=== PATIENT | male | born 1995 | race Caucasian/White ===

== ENCOUNTER 2023-09-14 10:20 | Observation (INO) | payer OTHER, SELFPAY ==
[2023-09-14] VITALS (16 sets, daily range): BP systolic 133–179; BP diastolic 81–100; PULSE 74–124; RESP 13–322; TEMP 36.6–37.1; O2SAT 92–97; BMI 32.2; BMI 32.6
--- NOTE | 2023-09-14 10:28 | EKG12_ITS ---
Test Reason : SOB Blood Pressure : / mmHG Vent. Rate : 102 BPM Atrial Rate : 102 BPM P-R Int : 156 ms QRS Dur : 092 ms QT Int : 346 ms P-R-T Axes : 072 065 035 degrees QTc Int : 450 ms Sinus tachycardia Otherwise normal ECG Confirmed by Surjit Marmolejo ([id number]), scientific publications editor TRANG ESTRADA ([id number]) on 09/15/2023 11:10:02 AM Referred By: Confirmed By:Surjit Marmolejo
--- NOTE | 2023-09-14 10:28 | RAD_ITS ---
STUDY: X-RAY - SOFT TISSUE NECK REASON FOR EXAM: Male, 28 years old. Sore throat TECHNIQUE: AP and lateral view(s) of the neck were obtained. COMPARISON: None. FINDINGS: Normal visualized nasopharynx, oropharynx, hypopharynx. Normal epiglottis. Normal visualized subglottic tracheal air column. Loss of the normal cervical lordosis. Normal visualized osseous structures. Diffuse subcutaneous emphysema overlying both cervical regions and the upper thorax. RAD/Neck for Soft Tissue IMPRESSION: Diffuse subcutaneous emphysema overlying both cervical region and the upper thorax. Electronically Signed: Clarke Washington MD at 11:32 EDT ,
--- NOTE | 2023-09-14 10:32 | ED.RN ---
NO OLD EKGS
--- NOTE | 2023-09-14 10:34 | ED.VIS.DYS ---
HPI History of Present Illness Chief Complaint: Shortness of Breath Narrative Narrative: 28-year-old male presenting with shortness of breath. He states he history of asthma and was seen at [facility] yesterday. He states they gave him a breathing treatment and establish an IV and gave him some steroids but told him that he did not need imaging and did not need lab work. Patient states he is having more trouble breathing he feels like his throat is swelling and it is more of a swallowing issue in his throat. He states the breathing treatments helped yesterday because he does have asthma and he was not sent home on steroids but he did not think the steroids made any difference. He states that the pain in his throat extends all the way down his chest and it feels like he has grace in his throat. He feels like he might taste blood. He has not been coughing up blood. He has not had a fever. [facility] Medical History (Updated 09/14/23 @ 13:[address] Andreina Salgado MD) Asthma Home Medications ?Medication ?Instructions ?Recorded ?Last Taken ?Type NK 09/14/23 Unknown History Allergy/AdvReac Type Severity Reaction Status Date / Time No Known Allergies Allergy Verified 09/14/23 10:21 Social History Smoking Status: Never smoker ROS ROS ED Constitutional Constitutional ED: Denies chills or fever(s) Eyes Eyes: Denies change in vision or diplopia ENT ENT ED: Reports sore throat; Denies rhinorrhea Cardiovascular Cardiovascular: Denies chest pain Respiratory/Chest Respiratory/Chest: Reports dyspnea and dyspnea on exertion Gastrointestinal Gastrointestinal: Denies abdominal pain, nausea or vomiting Genitourinary Genitourinary ED: Denies dysuria or hematuria Musculoskeletal Musculoskeletal: Denies arthralgias, back pain or myalgias Integumentary Denies abscess or Abrasions Neurologic Neurologic: Denies headache(s) Psychiatric Psychiatric: Denies anxiety or depression EXAM Physical Exam Const Vital Signs: 09/14/23 10:20 09/14/23 10:38 09/14/23 10:39 Temperature 97.8 F Temperature Source Temporal Pulse Rate 124 H Respiratory Rate 24 H Respiratory Effort Normal Respiratory Depth Normal Respiratory Pattern Normal Blood Pressure 152/99 H Blood Pressure Mean 116 Pulse Ox 92 Oxygen Delivery Method Room Air Room Air 09/14/23 10:45 09/14/23 10:45 09/14/23 11:32 Temperature Temperature Source Pulse Rate 115 H 112 H Respiratory Rate 13 24 H Respiratory Effort Respiratory Depth Respiratory Pattern Normal Blood Pressure Blood Pressure Mean Pulse Ox 97 94 Oxygen Delivery Method Room Air 09/14/23 12:00 09/14/23 13:00 Temperature Temperature Source Pulse Rate 113 H 101 H Respiratory Rate 22 H 21 H Respiratory Effort Respiratory Depth Respiratory Pattern Blood Pressure Blood Pressure Mean Pulse Ox 92 92 Oxygen Delivery Method Positive well nourished General Appearance ED: NAD HEENT Reports moist mucous membranes HEENT Narrative: Patient tolerating his own secretions. He is speaking in full sentences. atraumatic Eyes PERRL and EOMs intact bilaterally Neck no lymphadenopathy and supple Neck Narrative: No stridor on examination General: normal visual inspection and trachea midline; Negative for anterior neck swelling or tracheal deviation Resp normal respiratory effort Auscultation: Negative for rales, rhonchi or wheezes Cardio regular rhythm Rate: tachycardic MDM MDM MDM Narrative Medical decision making narrative: Patient presenting with feeling of difficulty swallowing and shortness of breath. He is not wheezing on exam but he did state that these aerosols helped him yesterday. Differential includes ACS, PE, pneumonia, pneumothorax, strep throat, COVID, influenza, RSV. CBC will be obtained to assess white blood cell count, hemoglobin, platelets. BMP to assess renal function, electrolytes, glucose. High-sensitivity troponin and EKG to assess for ischemia/dysrhythmia. Chest x-ray to rule out pneumonia pneumothorax. CBC shows leukocytosis 20.5. Patient did receive some steroids yesterday is not clear if this was elevating his white blood cell count. Renal function electrolytes are normal. High-sensitivity troponin is 17. EKG interpreted by myself shows sinus rhythm at 102 bpm without sign of ischemic change. Chest x-ray and soft tissue neck interpreted by myself show a lot of subcu emphysema. Radiology interprets the chest x-ray as a 5% pneumothorax. Discussed the case with general surgery Dr. Salgado. She recommended a CT of the chest which was performed and shows a lot of subcutaneous emphysema, trace pneumothoraces, pneumomediastinum. Patient was placed on oxygen. Dr. Gray him is going to order a upper GI series. Patient to be admitted to the hospital. Impression: 1. Pneumothorax 2. Pneumomediastinum 3. Subcutaneous emphysema 4. Leukocytosis Lab Data Attestation: I reviewed the patient's lab results. Labs: Laboratory Results - last 24 hr 09/14/23 10:48 WBC 20.5 H RBC 5.49 Hgb 16.2 Hct 48.5 MCV 88.3 MCH 29.5 MCHC 33.4 RDW Std Deviation 42.2 RDW Coeff of Lorraine 12.9 Plt Count 182 MPV 12.6 H Immature Gran % (Auto) 0.400 Neut % (Auto) 81.8 H Lymph % (Auto) 8.6 L Owen % (Auto) 8.7 Eos % (Auto) 0.3 Baso % (Auto) 0.2 Absolute Neuts (auto) 16.8 H Absolute Lymphs (auto) 1.77 Nucleated RBC % 0 Diff Path Review May foll D-Dimer Quant (PE/DVT) 0.32 Sodium 137 Potassium 3.6 Chloride 105 Carbon Dioxide 28.0 Anion Gap 4 L BUN 18 Creatinine 1.06 Estim Creat Clear Calc 139.26 Est GFR (MDRD) Af Amer 107 Est GFR (MDRD) Non-Af 88 BUN/Creatinine Ratio 17.0 Glucose 105 Calcium 10.2 H Troponin I High Sens 17 Radiography Diagnostic Testing: Clinical Impression(s) from Imaging Studies Soft Tissue Neck X-Ray 09/14/23 10:28 IMPRESSION: Diffuse subcutaneous emphysema overlying both cervical region and the upper thorax. Electronically Signed: Clarke Washington MD at 11:32 EDT , Chest X-Ray 09/14/23 11:06 IMPRESSION: There is a 5% right apical pneumothorax. Pneumomediastinum. Subcutaneous emphysema overlying the upper chest and lower cervical region. Electronically Signed: Clarke Washington MD at 11:31 EDT , Chest CT 09/14/23 12:05 IMPRESSION: Moderate cervical emphysema and pneumomediastinum with air extending into the upper chest wall. Trace pneumothoraces. Electronically Signed: Liyah Dee MD at 12:43 EDT , Soft Tissue Neck CT 09/14/23 12:05 IMPRESSION: Extensive cervical emphysema, particularly in the retropharyngeal region with extension of air into the upper chest as above. Electronically Signed: Liyah Dee MD at 12:54 EDT , Discharge Plan Triage Chief Complaint: Shortness of Breath ED Provider: David Elaine Dx/Rx/DC Orders Prescriptions: No Action NK Primary Care Provider: Care Physician,No Primary Referrals: Care Physician,No Primary [Primary Care Provider] - Print Language: Greenlandic
[2023-09-14] MEDS: 0.9% Normal Saline (1000mL) 1,000 ML 999 ML IV (10:40)
[2023-09-14] MEDS: Albuterol 2.5 MG/3 ML VIAL.NEB. INHALATION (10:40)
[2023-09-14] MEDS: Ipratropium/Albuterol Sulfate 3 ML AMPUL.NEB INHALATION (10:40)
[2023-09-14] MEDS: MethylPREDNISolone 125 MG/2 ML Vial IV (10:40)
[2023-09-14 10:56] LABS: Absolute Lymphocyte Count 1.77 X10^3/uL (0.83-4.51); Absolute Neutrophil Count 16.8 X10^3/uL (2.0-7.7); Basophil# 0.04 X10^3/uL; Basophil% 0.2 % (0-1); Eosinophil# 0.07 X10^3/uL; Eosinophils% 0.3 % (0-5); Hematocrit 48.5 % (40-54); Hemoglobin 16.2 g/dL (13.0-16.5); Lymphocyte # 1.77 X10^3/ul (0.83-4.51); Lymphocyte % 8.6 % (19-41); Mean Corp Hgb Conc 33.4 g/dL (32-36); Mean Corpuscular Hgb 29.5 pg (27.0-32.0); Mean Corpuscular Volume 88.3 fL (80-94); Mean Platelet Vol. 12.6 fl (6.2-12.0); Monocyte# 1.79 X10^3/uL; Monocyte% 8.7 % (0-10); NRBC Flagged by Analyzer 0 % (0-5); Neutrophil # 16.76 X10^3/uL (2.7-7.7); Neutrophil % 81.8 % (47-70); POSITIVE DIFFERENTIAL YES; Platelet Count 182 K/mm3 (150-450); RBC Distribution Width CV 12.9 % (11.6-14.6); RBC Distribution Width SD 42.2 fl (35.1-43.9); Red Blood Count 5.49 M/mm3 (4.6-6.2); White Blood Count 20.5 K/mm3 (4.4-11.0)
[2023-09-14 11:03] LABS: Differential Indicated SCAN CRITERIA MET
--- NOTE | 2023-09-14 11:06 | RAD_ITS ---
STUDY: X-RAY CHEST REASON FOR EXAM: Male, 28 years old. Chest pain and cervical pain. TECHNIQUE: Single AP portable view of the chest. COMPARISON: None. FINDINGS: EKG electrodes are seen. Subcutaneous emphysema is seen in the upper thorax and lower cervical region. There is evidence of a 5% right apical pneumothorax. There is no demonstrated pleural abnormality. Normal size heart. I suspect a pneumomediastinum as well. Normal visualized pulmonary arteries. Normal visualized aortic arch and descending thoracic aorta. Normal visualized thoracic spine. Normal visualized ribs, clavicles, and shoulders. There is no demonstrated abnormality of the visualized soft tissue structures of the upper abdomen. RAD/Chest 1 View (Portable) IMPRESSION: There is a 5% right apical pneumothorax. Pneumomediastinum. Subcutaneous emphysema overlying the upper chest and lower cervical region. Electronically Signed: Clarke Washington MD at 11:31 EDT ,
[2023-09-14 11:12] LABS: D-Dimer Quantitative (DVT/PE) 0.32 FEU/ug/m (0.27-0.49)
[2023-09-14 11:23] LABS: Anion Gap 4 (5-15); BUN 18 mg/dL (7-18); Calcium,Total 10.2 mg/dL (8.5-10.1); Chloride 105 mmol/L (98-107); Creatinine, Serum 1.06 mg/dL (0.70-1.30); EST Glomerular Filtration Rate 88 mL/min (>60); Est Glom Filt Rate - Afr Amer 107 mL/min (>60); Estimated Creatinine Clearance 139.26 ml/min; Glucose 105 mg/dL (74-106); Potassium 3.6 mmol/L (3.5-5.1); Sodium Level 137 mmol/L (136-145); Troponin-I HS 17 pg/mL (3.0-78.0)
--- NOTE | 2023-09-14 12:05 | CT_ITS ---
HISTORY: pneumothorax. TECHNIQUE: CT of the chest was performed after the intravenous administration of 100 mL Isovue 300. Coronal and sagittal reformatted images. Individualized dose optimization techniques were used for this CT. 900 images. COMPARISON: CR same day. FINDINGS: CENTRAL AIRWAYS: Patent. LUNGS: Clear. PLEURA: Trace bilateral pneumothoraces. No significant pleural effusion. HEART/PERICARDIUM: Heart within normal limits in size. No pericardial effusion. AORTA/VESSELS: No thoracic aortic aneurysm or dissection flap. MEDIASTINUM/VANESSA: Moderate bilateral lower cervical emphysema extending to the supraclavicular region, paraspinal soft tissues, and upper thoracic spine. Moderate pneumomediastinum. No significant wall thickening or surrounding stranding of the trachea or esophagus. No pathologically enlarged lymph nodes. Mild air in the deep soft tissues of the upper chest wall bilaterally. OSSEOUS STRUCTURES: Intact. UPPER ABDOMEN: Unremarkable. CT/Chest WITH Contrast IMPRESSION: Moderate cervical emphysema and pneumomediastinum with air extending into the upper chest wall. Trace pneumothoraces. Electronically Signed: Liyah Dee MD at 12:43 EDT ,
--- NOTE | 2023-09-14 12:05 | CT_ITS ---
HISTORY: pneumotharax. TECHNIQUE: Helically acquired images were obtained of the neck after the intravenous administration of 100 mL Isovue 300. A radiation dose optimization technique was used for this scan. 633 images. COMPARISON: CR same day. FINDINGS: NASOPHARYNX: Symmetric soft tissues with cervical emphysema. SUPRAHYOID NECK: Retropharyngeal air extending up to the nasopharynx into the superior mediastinum measuring 1.2 cm in thickness at the C3 level. Air extends into the bilateral parapharyngeal and left submandibular spaces. Symmetric oropharynx. No significant emphysema of the oral cavity. INFRAHYOID NECK: Air dissects around the sternocleidomastoid and strap muscles with extension to the supraclavicular regions. Unremarkable larynx, hypopharynx, and supraglottis. THYROID: No focal lesions. SALIVARY GLANDS: Unremarkable. LYMPH NODES: Mildly prominent bilateral cervical lymph nodes, likely reactive. VASCULAR STRUCTURES: Unremarkable limited contrast bolus noted ORBITS: Symmetric contents. No oral emphysema. PARANASAL SINUSES, MASTOID AIR CELLS: Mild bubbly fluid in the right maxillary sinus. OSSEOUS STRUCTURES: Intact cervical spine. Air extends into the cervical and upper thoracic spine as well as the paraspinal soft tissues LUNG APICES: Trace apical pneumothoraces with air in the soft tissues of the upper chest wall. CT/Soft Tissue Neck WITH Contrast IMPRESSION: Extensive cervical emphysema, particularly in the retropharyngeal region with extension of air into the upper chest as above. Electronically Signed: Liyah Dee MD at 12:54 EDT ,
--- NOTE | 2023-09-14 13:07 | PCM.HP.STD ---
HPI - General General Date of Admission: 09/14/23 Chief Complaint: Tightness at neck and chest HPI Narrative LYNNETTE SKINNER, is a 28 M who presents to the ER due to feeling tightness in his neck and chest. Patient states this started on Tuesday and was the worst on Tuesday and went to [facility] and they did not do any labs or imaging just given IV steroids and sent him home per patient. Patient came in the ER today with the same symptoms but does state they are a little bit better. Patient states it can hurt to swallow as well. Patient does have a history of asthma not currently on any inhalers recently. Patient states when this started on Tuesday he was smoking with some of his friends does not recall any heavy coughing just normal coughing. Patient did notice that he had some wheezing. Patient only took Tylenol as I stated before he does not have any current inhaler. Patient states he smokes about twice a day. States he did have some heavy coughing about 2 weeks ago when he had an upper respiratory infection per patient. Patient's white blood count on admit is 20.5 he did get IV steroids yesterday and also some additional IV steroids in the ER today. Chest x-ray and x-ray of the neck showed subcutaneous cervical emphysema as well as very small pneumothorax. CT neck and chest also showed the same. Patient is satting 92% on room air. [facility] Medical History (Updated 09/14/23 @ 13:[address] Andreina Salgado MD) Asthma Home Medications ?Medication ?Instructions ?Recorded ?Last Taken ?Type NK 09/14/23 Unknown History Allergy/AdvReac Type Severity Reaction Status Date / Time No Known Allergies Allergy Verified 09/14/23 10:21 Social History (Updated 09/14/23 @ 13:[address] Andreina Salgado MD) Smoking Status: Current every day smoker Vital Signs Vital Signs Vital Signs: 09/14/23 10:20 09/14/23 10:38 09/14/23 10:39 Temperature 97.8 F Temperature Source Temporal Pulse Rate 124 H Respiratory Rate 24 H Respiratory Effort Normal Respiratory Depth Normal Respiratory Pattern Normal Blood Pressure 152/99 H Blood Pressure Mean 116 Pulse Ox 92 Oxygen Delivery Method Room Air Room Air 09/14/23 10:45 09/14/23 10:45 09/14/23 11:32 Temperature Temperature Source Pulse Rate 115 H 112 H Respiratory Rate 13 24 H Respiratory Effort Respiratory Depth Respiratory Pattern Normal Blood Pressure Blood Pressure Mean Pulse Ox 97 94 Oxygen Delivery Method Room Air 09/14/23 12:00 Temperature Temperature Source Pulse Rate 113 H Respiratory Rate 22 H Respiratory Effort Respiratory Depth Respiratory Pattern Blood Pressure Blood Pressure Mean Pulse Ox 92 Oxygen Delivery Method Weight Weight: 251 lb 3.2 oz Body Mass Index (BMI) 32.2 Physical Exam Narrative Patient does have some slight subcu crepitus in his neck which is not super easy to feel and mild Const alert, oriented x3 and no apparent distress HEENT normocephalic and head/scalp atraumatic Resp normal respiratory effort Auscultation: wheezes expiratory wheezes (Bases bilaterally little more on the right than left) Cardio regular rate GI soft to palpation and non-tender; Negative for non-distended Palpation: Negative for guarding Extremity no clubbing, cyanosis or edema Skin no rashes or lesions noted Neuro CN's II-XII intact bilaterally Psych mental status grossly normal Results Lab / Micro Data 09/14/23 10:48 09/14/23 10:48 Labs: Laboratory Results - last 24 hr 09/14/23 10:48: WBC 20.5 H, RBC 5.49, Hgb 16.2, Hct 48.5, MCV 88.3, MCH 29.5, MCHC 33.4, RDW Std Deviation 42.2, RDW Coeff of Lorraine 12.9, Plt Count 182, MPV 12.6 H, Immature Gran % (Auto) 0.400, Neut % (Auto) 81.8 H, Lymph % (Auto) 8.6 L, Patrick % (Auto) 8.7, Eos % (Auto) 0.3, Baso % (Auto) 0.2, Absolute Neuts (auto) 16.8 H, Absolute Lymphs (auto) 1.77, Nucleated RBC % 0, Diff Path Review July foll, D-Dimer Quant (PE/DVT) 0.32, Sodium 137, Potassium 3.6, Chloride 105, Carbon Dioxide 28.0, Anion Gap 4 L, BUN 18, Creatinine 1.06, Estim Creat Clear Calc 139.26, Est GFR (MDRD) Af Amer 107, Est GFR (MDRD) Non-Af 88, BUN/Creatinine Ratio 17.0, Glucose 105, Calcium 10.2 H, Troponin I High Sens 17 Micro: Microbiology 09/14/23 11:00 Mucosa - Throat Streptococcus pyogenes (PCR) - Final 09/14/23 11:10 Mucosa - Nose SARS-CoV-2, Influenza & RSV (PCR) - Final Imaging Radiology Impression Soft Tissue Neck X-Ray 09/14/23 10:28 IMPRESSION: Diffuse subcutaneous emphysema overlying both cervical region and the upper thorax. Electronically Signed: Clarke Washington MD at 11:32 EDT , Chest X-Ray 09/14/23 11:06 IMPRESSION: There is a 5% right apical pneumothorax. Pneumomediastinum. Subcutaneous emphysema overlying the upper chest and lower cervical region. Electronically Signed: Clarke Washington MD at 11:31 EDT , Chest CT 09/14/23 12:05 IMPRESSION: Moderate cervical emphysema and pneumomediastinum with air extending into the upper chest wall. Trace pneumothoraces. Electronically Signed: Liyah Dee MD at 12:43 EDT , Soft Tissue Neck CT 09/14/23 12:05 IMPRESSION: Extensive cervical emphysema, particularly in the retropharyngeal region with extension of air into the upper chest as above. Electronically Signed: Liyah Dee MD at 12:54 EDT , Assessment & Plan Assessment/Plan (1) Pneumomediastinum: (2) Nontraumatic subcutaneous emphysema: (3) Tobacco abuse: PLAN: Plan Discussed with patient would plan to get an upper GI with Gastrografin today to rule out any esophageal perforation as if that were the case patient would need to be transferred to tertiary care facility. Once the upper GI is completed we will allow patient to have liquids. Will plan to keep patient on 2 L nasal cannula and repeat chest x-ray and neck x-ray in a.m. discussed with patient as long as it is not worse and he is able to tolerate diet would likely be able to be DC home tomorrow. Leukocytosis due to IV steroids-yesterday at [facility] and today. Will consult hospitalist for help with asthma medications patient does not currently have any inhalers Andreina Salgado M.D. Pager: [phone] [facility] [address] [place] [address], [facility], [address] [place] [address] Office: [phone]
--- NOTE | 2023-09-14 13:40 | RAD_ITS ---
CLINICAL HISTORY: Male, 28 years old. Cervical emphysema. PROCEDURE: Gastrografin upper GI series. FLUOROSCOPY TIME (if supplied): (18 seconds) minutes/seconds. 30.80 mGy. 18 images were submitted. TECHNIQUE: (All elements of maximal sterile barrier technique followed, including US elements as applicable) The patient ingested Gastrografin. Imaging was obtained. FINDINGS: No evidence of esophageal tear. No evidence of obstruction. The stomach is unremarkable. RAD/Upper GI Single Contrast IMPRESSION: Unremarkable examination. Electronically Signed: Clarke Washington MD at 13:57 EDT ,
--- NOTE | 2023-09-14 16:20 | CON.PCM.HO_ITS ---
Assessment & Plan Assessment/Plan (1) Nontraumatic subcutaneous emphysema: (2) Pneumomediastinum: PLAN: Plan Pneumomediastinum and subcutaneous emphysema in the chest and neck. * Suspect that the coughing patient had likely precipitated that. Plan is to monitor the patient overnight. * Patient did have an upper GI that was negative thereby ruling out any esophageal perforation. * Supportive management at this time. * I did review this with Dr. Mendoza, pulmonary, who who felt as if the patient remained stable that there would not be any additional workup necessary at this time. Asthma * Patient does not appear to be any con asthma exacerbation and patient states it has been remote since he has had a prior severe exacerbation of his asthma. His symptoms may have not been directly related with asthma but possibly related with an upper respiratory infection. * No additional workup or treatment indicated at this time. Thank you for the consult. The hospitalist service will follow peripherally. HPI Consult Data Date of Consult: 09/14/23 HPI Narrative Reason for Consultation: Consult requested by Dr. Salgado for asthma. HPI Narrative: LYNNETTE SKINNER, is a 28 M who presents with difficulty swallowing and neck fullness. Over the past couple days, patient has been feeling short of breath and been having a dry cough. Symptoms again more acute today where he had the aforementioned symptoms. Patient had a CT of his chest that showed moderate cervical emphysema and pneumomediastinum with air extending into the upper chest wall. Trace pneumothoraces. And CT of his neck showed extensive cervical emphysema particularly in the retropharyngeal region with extension of air into the upper chest as above. Patient was admitted to medical surgical floor. Patient did undergo an upper GI that was negative. Patient denies any vomiting. [facility] Medical History Asthma Home Medications ?Medication ?Instructions ?Recorded ?Last Taken ?Type NK 09/14/23 Unknown History Allergy/AdvReac Type Severity Reaction Status Date / Time No Known Allergies Allergy Verified 09/14/23 10:21 Family History (Updated 09/14/23 @ 16:[address] Sagar Arredondo DO) Other COPD (chronic obstructive pulmonary disease) Social History (Updated 09/14/23 @ 16:[address] Sagar Arredondo DO) Smoking Status: Former smoker substance use type: marijuana ROS ROS Narrative All review of systems were negative except as mentioned above in the history of present illness and the other review of systems. Physical Exam Const alert and no apparent distress Constitutional Narrative: No respiratory distress. No conversational dyspnea. Voice is weak but clear. HEENT normocephalic and hearing grossly normal bilaterally Neck Neck Narrative: Fullness of his neck without any crepitance though there was some crepitance in the upper chest Resp normal respiratory effort and no retractions Cardio regular rate, regular rhythm, S1 normal heart sound and S2 normal heart sound GI normal to inspection, nondistended, normoactive bowel sounds, soft to palpation, non-tender and non-distended Extremity normal to inspection and no clubbing, cyanosis or edema Neuro Sensorium / Orientation: awake and alert Lab / Micro Data 09/14/23 10:48 09/14/23 10:48 Labs: Laboratory Results - last 24 hr 09/14/23 10:48: WBC 20.5 H, RBC 5.49, Hgb 16.2, Hct 48.5, MCV 88.3, MCH 29.5, MCHC 33.4, RDW Std Deviation 42.2, RDW Coeff of Lorraine 12.9, Plt Count 182, MPV 12.6 H, Immature Gran % (Auto) 0.400, Neut % (Auto) 81.8 H, Lymph % (Auto) 8.6 L , [place] % (Auto) 8.7, Eos % (Auto) 0.3, Baso % (Auto) 0.2, Absolute Neuts (auto) 16.8 H, Absolute Lymphs (auto) 1.77, Nucleated RBC % 0, Diff Path Review July foll, D-Dimer Quant (PE/DVT) 0.32, Sodium 137, Potassium 3.6, Chloride 105, Carbon Dioxide 28.0, Anion Gap 4 L, BUN 18, Creatinine 1.06, Estim Creat Clear Calc 139.26, Est GFR (MDRD) Af Amer 107, Est GFR (MDRD) Non-Af 88, BUN/Creatinine Ratio 17.0, Glucose 105, Calcium 10.2 H, Troponin I High Sens 17 Micro: Microbiology 09/14/23 11:00 Mucosa - Throat Streptococcus pyogenes (PCR) - Final 09/14/23 11:10 Mucosa - Nose SARS-CoV-2, Influenza & RSV (PCR) - Final Imaging Radiology Impression Soft Tissue Neck X-Ray 09/14/23 10:28 IMPRESSION: Diffuse subcutaneous emphysema overlying both cervical region and the upper thorax. Electronically Signed: Clarke Washington MD at 11:32 EDT , Chest X-Ray 09/14/23 11:06 IMPRESSION: There is a 5% right apical pneumothorax. Pneumomediastinum. Subcutaneous emphysema overlying the upper chest and lower cervical region. Electronically Signed: Clarke Washington MD at 11:31 EDT , Chest CT 09/14/23 12:05 IMPRESSION: Moderate cervical emphysema and pneumomediastinum with air extending into the upper chest wall. Trace pneumothoraces. Electronically Signed: Liyah Dee MD at 12:43 EDT , Soft Tissue Neck CT 09/14/23 12:05 IMPRESSION: Extensive cervical emphysema, particularly in the retropharyngeal region with extension of air into the upper chest as above. Electronically Signed: Liyah Dee MD at 12:54 EDT , Upper GI Series 09/14/23 13:40 IMPRESSION: Unremarkable examination. Electronically Signed: Clarke Washington MD at 13:57 EDT , Charges/Coding Visit Charges Office Visits / Consults: [id number] OP Consult L3
[2023-09-14] MEDS: 0.9% Normal Saline (1000mL) 1,000 ML 120 ML IV (20:00)
[2023-09-14] MEDS: Acetaminophen 325 MG Tablet 650 MG PO (20:00)
--- NOTE | 2023-09-14 23:25 | NURSING ---
HOB up 45, pt sleeping, breathing appears unlabored
[2023-09-15] MEDS: 0.9% Normal Saline (1000mL) 1,000 ML 120 ML IV ×2 (00:13→08:33)
--- NOTE | 2023-09-15 05:55 | RAD_ITS ---
INDICATION: Cervical subcu emphysema -- Include neck-portable EXAMINATION/TECHNIQUE: X-RAY - XR Chest 1 View COMPARISON: 09/14/2023. FINDINGS: LINES/DEVICES: None. LUNGS: Questionable small right apical pneumothorax. No evidence of a pleural effusion. No focal infiltrate is identified. MEDIASTINUM AND CARDIOVASCULAR STRUCTURES: Cardiac silhouette is normal in size and contour. Stable mild pneumomediastinum. BONES AND SOFT TISSUES: Stable subcutaneous emphysema in the neck, left greater than right. RAD/Chest 1 View (Portable) IMPRESSION: Stable subcutaneous emphysema in the neck and stable mild pneumomediastinum. Questionable small right apical pneumothorax. Electronically Signed: Shay Fernando DO at 6:16 EDT ,
[2023-09-15 06:14] VITALS: BP 152/80; PULSE 96; RESP 20; TEMP 36.9; O2SAT 96
--- NOTE | 2023-09-15 07:13 | PCM.PN.SRG ---
Subjective Subjective Patient states he did have a bit of coughing around 3 AM and then noticed some wheezing after that. Patient currently getting a breathing treatment Objective Data Objective Data Vital Signs: Vital Signs Temp Pulse Resp BP Pulse Ox O2 Del Method O2 Flow Rate 98.4 F 96 20 H 152/80 H 96 Nasal Cannula 2 09/15/23 06:14 09/15/23 06:14 09/15/23 06:14 09/15/23 06:14 09/15/23 06:14 09/15/23 06:14 09/15/23 06:14 Oxygen Flow Rate (L/min) 2 Oxygen Delivery Method Nasal Cannula Weight: 254 lb 8 oz Body Mass Index (BMI) 32.6 Intake & Output: Intake and Output for Last 24 Hours 09/13/23 09/14/23 09/15/23 23:59 23:59 23:59 Intake Total 1000 / 2166 1672 / 1672 Output Total 0 / 0 Balance 1000 / 2166 1672 / 1672 Lab / Micro Data 09/15/23 06:12 09/15/23 06:12 Labs: Laboratory Results - last 24 hr 09/14/23 10:48: WBC 20.5 H, RBC 5.49, Hgb 16.2, Hct 48.5, MCV 88.3, MCH 29.5, MCHC 33.4, RDW Std Deviation 42.2, RDW Coeff of [place]raine 12.9, Plt Count 182, MPV 12.6 H, Immature Gran % (Auto) 0.400, Neut % (Auto) 81.8 H, Lymph % (Auto) 8.6 L, [place] % (Auto) 8.7, Eos % (Auto) 0.3, Baso % (Auto) 0.2, Absolute Neuts (auto) 16.8 H, Absolute Lymphs (auto) 1.77, Nucleated RBC % 0, Diff Path Review July foll, D-Dimer Quant (PE/DVT) 0.32, Sodium 137, Potassium 3.6, Chloride 105, Carbon Dioxide 28.0, Anion Gap 4 L, BUN 18, Creatinine 1.06, Estim Creat Clear Calc 139.26, Est GFR (MDRD) Af Amer 107, Est GFR (MDRD) Non-Af 88, BUN/Creatinine Ratio 17.0, Glucose 105, Calcium 10.2 H, Troponin I High Sens 17 Micro: Microbiology 09/14/23 11:00 Mucosa - Throat Streptococcus pyogenes (PCR) - Final 09/14/23 11:10 Mucosa - Nose SARS-CoV-2, Influenza & RSV (PCR) - Final Radiography Diagnostic Testing: Radiology Impression Soft Tissue Neck X-Ray 09/14/23 10:28 IMPRESSION: Diffuse subcutaneous emphysema overlying both cervical region and the upper thorax. Electronically Signed: Clarke Washington MD at 11:32 EDT , Chest X-Ray 09/14/23 11:06 IMPRESSION: There is a 5% right apical pneumothorax. Pneumomediastinum. Subcutaneous emphysema overlying the upper chest and lower cervical region. Electronically Signed: Clarke Washington MD at 11:31 EDT , Chest CT 09/14/23 12:05 IMPRESSION: Moderate cervical emphysema and pneumomediastinum with air extending into the upper chest wall. Trace pneumothoraces. Electronically Signed: Liyah Dee MD at 12:43 EDT , Soft Tissue Neck CT 09/14/23 12:05 IMPRESSION: Extensive cervical emphysema, particularly in the retropharyngeal region with extension of air into the upper chest as above. Electronically Signed: Liyah Dee MD at 12:54 EDT , Upper GI Series 09/14/23 13:40 IMPRESSION: Unremarkable examination. Electronically Signed: Clarke Washington MD at 13:57 EDT , Chest X-Ray 09/15/23 05:55 IMPRESSION: Stable subcutaneous emphysema in the neck and stable mild pneumomediastinum. Questionable small right apical pneumothorax. Electronically Signed: Shay Fernando, DO at 6:16 EDT , Physical Exam Narrative Patient does have subcu crepitus a little more noticeable in the neck more so on the left however patient's x-ray read as stable. Const oriented x3 and no apparent distress Resp normal respiratory effort Cardio regular rate GI soft to palpation and non-tender Inspection: Negative for abdominal distention Assessment & Plan Assessment/Plan (1) Pneumomediastinum: (2) Nontraumatic subcutaneous emphysema: PLAN: Plan Patient's x-ray appears stable may be slightly more noticeable subcu crepitus on exam. Patient is 96% on 2 L nasal cannula?prophylactically. Patient did tolerate full liquids will advance to regular diet check later today and and possibly discharge home. Addendum: Recheck about 1500 patient denies any issues breathing 96% on room air tolerating regular diet. Will recheck chest x-ray including neck at 5 PM if stable will DC home. Will have patient have a repeat x-ray on Tuesday and discussed with patient that if anything worsens over the weekend recommend going to the ER. Patient was agreeable with plan. Did also encourage marijuana cessation. Leukocytosis improved to 16 from 20 but likely due to IV steroids that he got 2 days in a row. Appreciate medicine's input Andreina Salgado M.D. Pager: [phone] [facility] [address] [place] [address], [facility], [address] [place] [address] Office: [phone] Charges/Coding Visit Charges Inpatient E&M: 07186 Subs Hosp L2
[2023-09-15 07:18] LABS: Absolute Neutrophil Count 13.5 X10^3/uL (2.0-7.7); Basophil# 0.04 X10^3/uL; Basophil% 0.2 % (0-1); Eosinophil# 0.11 X10^3/uL; Eosinophils% 0.7 % (0-5); Hematocrit 44.4 % (40-54); Hemoglobin 14.1 g/dL (13.0-16.5); Lymphocyte % 10.2 % (19-41); Mean Corp Hgb Conc 31.8 g/dL (32-36); Mean Corpuscular Hgb 28.6 pg (27.0-32.0); Mean Corpuscular Volume 90.1 fL (80-94); Mean Platelet Vol. 12.7 fl (6.2-12.0); Monocyte# 1.27 X10^3/uL; Monocyte% 7.6 % (0-10); NRBC Flagged by Analyzer 0 % (0-5); Neutrophil # 13.48 X10^3/uL (2.7-7.7); Neutrophil % 80.8 % (47-70); Platelet Count 166 K/mm3 (150-450); RBC Distribution Width CV 13.2 % (11.6-14.6); RBC Distribution Width SD 43.6 fl (35.1-43.9); Red Blood Count 4.93 M/mm3 (4.6-6.2); White Blood Count 16.7 K/mm3 (4.4-11.0)
[2023-09-15] MEDS: Ipratropium/Albuterol Sulfate 3 ML AMPUL.NEB INHALATION ×2 (07:23→13:08)
[2023-09-15 07:26] VITALS: PULSE 99; RESP 18; O2SAT 97
[2023-09-15 07:55] LABS: Anion Gap 5 (5-15); BUN 19 mg/dL (7-18); BUN/Creat Ratio 24.9 RATIO (10-20); Calcium,Total 9.1 mg/dL (8.5-10.1); Chloride 108 mmol/L (98-107); Creatinine, Serum 0.76 mg/dL (0.70-1.30); EST Glomerular Filtration Rate 129 mL/min (>60); Est Glom Filt Rate - Afr Amer 156 mL/min (>60); Estimated Creatinine Clearance 195.46 ml/min; Glucose 90 mg/dL (74-106); Potassium 3.4 mmol/L (3.5-5.1); Sodium Level 142 mmol/L (136-145)
[2023-09-15 08:18] VITALS: BP 159/101; PULSE 96; RESP 16; TEMP 36.6; O2SAT 93
--- NOTE | 2023-09-15 08:28 | PN.HOSP_ITS ---
Reason for Visit Reason for Visit: Diagnoses Interstitial emphysema (09/14/23) Tobacco use (09/14/23) Subjective Subjective Feels well. Still with dry cough. Fullness in neck. Objective Data Objective Data Vital Signs: Vital Signs Temp Pulse Resp BP Pulse Ox O2 Del Method O2 Flow Rate 36.6 C 96 16 159/101 H 93 Nasal Cannula 2 09/15/23 08:18 09/15/23 08:18 09/15/23 08:18 09/15/23 08:18 09/15/23 08:18 09/15/23 08:23 09/15/23 08:23 Oxygen Flow Rate (L/min) 2 Oxygen Delivery Method Nasal Cannula Weight: 115.439 kg Body Mass Index (BMI) 32.6 Intake & Output: Intake and Output for Last 24 Hours 09/13/23 09/14/23 09/15/23 23:59 23:59 23:59 Intake Total 1000 / 2166 1672 / 1672 Output Total 0 / 0 Balance 1000 / 2166 1672 / 1672 Lab / Micro Data 09/15/23 06:12 09/15/23 06:12 Labs: Laboratory Results - last 24 hr 09/14/23 10:48: WBC 20.5 H, RBC 5.49, Hgb 16.2, Hct 48.5, MCV 88.3, MCH 29.5, MCHC 33.4, RDW Std Deviation 42.2, RDW Coeff of Lorraine 12.9, Plt Count 182, MPV 12.6 H, Immature Gran % (Auto) 0.400, Neut % (Auto) 81.8 H, Lymph % (Auto) 8.6 L , [place] % (Auto) 8.7, Eos % (Auto) 0.3, Baso % (Auto) 0.2, Absolute Neuts (auto) 16.8 H, Absolute Lymphs (auto) 1.77, Nucleated RBC % 0, Diff Path Review May foll, D-Dimer Quant (PE/DVT) 0.32, Sodium 137, Potassium 3.6, Chloride 105, Carbon Dioxide 28.0, Anion Gap 4 L, BUN 18, Creatinine 1.06, Estim Creat Clear Calc 139.26, Est GFR (MDRD) Af Amer 107, Est GFR (MDRD) Non-Af 88, BUN/Creatinine Ratio 17.0, Glucose 105, Calcium 10.2 H, Troponin I High Sens 17 09/15/23 06:12: WBC 16.7 H, RBC 4.93, Hgb 14.1, Hct 44.4, MCV 90.1, MCH 28.6, M CHC 31.8 L, RDW Std Deviation 43.6, RDW Coeff of [place]raine 13.2, Plt Count 166, MPV 12.7 H, Immature Gran % (Auto) 0.500, Neut % (Auto) 80.8 H, Lymph % (Auto) 10.2 L, [place] % (Auto) 7.6, Eos % (Auto) 0.7, Baso % (Auto) 0.2, Absolute Neuts (auto) 13.5 H, Absolute Lymphs (auto) 1.70, Nucleated RBC % 0, Sodium 142, Potassium 3.4 L, Chloride 108 H, Carbon Dioxide 29.0, Anion Gap 5, BUN 19 H, Creatinine 0.76, Estim Creat Clear Calc 195.46, Est GFR (MDRD) Af Amer 156, Est GFR (MDRD) Non-Af 129, BUN/Creatinine Ratio 24.9 H, Glucose 90, Calcium 9.1 Micro: Microbiology 09/14/23 11:00 Mucosa - Throat Streptococcus pyogenes (PCR) - Final 09/14/23 11:10 Mucosa - Nose SARS-CoV-2, Influenza & RSV (PCR) - Final Radiography Diagnostic Testing: Radiology Impression Soft Tissue Neck X-Ray 09/14/23 10:28 IMPRESSION: Diffuse subcutaneous emphysema overlying both cervical region and the upper thorax. Electronically Signed: Clarke Washington MD at 11:32 EDT , Chest X-Ray 09/14/23 11:06 IMPRESSION: There is a 5% right apical pneumothorax. Pneumomediastinum. Subcutaneous emphysema overlying the upper chest and lower cervical region. Electronically Signed: Clarke Washington MD at 11:31 EDT , Chest CT 09/14/23 12:05 IMPRESSION: Moderate cervical emphysema and pneumomediastinum with air extending into the upper chest wall. Trace pneumothoraces. Electronically Signed: Liyah Dee MD at 12:43 EDT , Soft Tissue Neck CT 09/14/23 12:05 IMPRESSION: Extensive cervical emphysema, particularly in the retropharyngeal region with extension of air into the upper chest as above. Electronically Signed: Liyah Dee MD at 12:54 EDT , Upper GI Series 09/14/23 13:40 IMPRESSION: Unremarkable examination. Electronically Signed: Clarke Washington MD at 13:57 EDT , Chest X-Ray 09/15/23 05:55 IMPRESSION: Stable subcutaneous emphysema in the neck and stable mild pneumomediastinum. Questionable small right apical pneumothorax. Electronically Signed: Shay Fernando DO at 6:16 EDT , Physical Exam Const alert and no apparent distress Neck no lymphadenopathy Neck Narrative: fullness. no crepitus. Resp normal respiratory effort and no retractions Cardio regular rate, regular rhythm, S1 normal heart sound and S2 normal heart sound GI normal to inspection, nondistended, normoactive bowel sounds, soft to palpation, non-tender and non-distended Assessment & Plan Assessment/Plan (1) Nontraumatic subcutaneous emphysema: (2) Pneumomediastinum: PLAN: Plan Pneumomediastinum and subcutaneous emphysema in the chest and neck. * Suspect that the coughing patient had likely precipitated that. Plan is to monitor the patient overnight. * Patient did have an upper GI that was negative thereby ruling out any esophageal perforation. * Supportive management at this time. * I did review this with Dr. Mendoza on 09/13, pulmonary, who who felt as if the patient remained stable that there would not be any additional workup necessary at this time. * Likely due to coughing. Will add guaifenesin with codeine (rx sent to pharmacy) to minimize coughing. Asthma * Patient does not appear to be any con asthma exacerbation and patient states it has been remote since he has had a prior severe exacerbation of his asthma. His symptoms may have not been directly related with asthma but possibly related with an upper respiratory infection. * No additional workup or treatment indicated at this time. Patient medically stable for discharge. Charges/Coding Visit Charges Inpatient E&M: 45150 Subs Hosp L2
[2023-09-15] MEDS: Potassium Chloride Oral Tablet 20 MEQ 40 MEQ PO (08:32)
[2023-09-15 10:25] LABS: Pathologist Review Reviewed
[2023-09-15 13:08] VITALS: PULSE 99; RESP 18
[2023-09-15 15:11] VITALS: BP 149/90; PULSE 87; RESP 16; TEMP 36.8; O2SAT 95
--- NOTE | 2023-09-15 15:14 | DCINST_ITS ---
Discharge Instructions Diet Discharge Diet: Light diet - advance as tolerated Activity Discharge Activity: No Restrictions Follow Up Care When: Follow-up as needed. Our office number is [phone] Test Results: Test results from this visit will be discussed in further detail at your follow- up appointment, if applicable. Discharge Plan Admission Admit Date/Time: 09/14/23 13:03 Primary Reason for Your Visit: nontraumatic subcutaneous emphysema; pneumomediastinum Attending Provider: Andreina Salgado Primary Care Provider: Care Physician,No Primary Consulting Providers: Sagar Arredondo Instructions Additional Instructions / Restrictions: Please obtain a Chest x-ray on Tuesday, 09/18 to follow-up on your hospitalization. Our office will call with results. Discharge Orders/Prescriptions Prescriptions: New codeine-guaifenesin [Guaifenesin AC] 10-100 mg/5 mL liquid 10 ml PO Q6H PRN (Reason: cough) Qty: 120 0RF Other Ambulatory Orders: Chest 1 View (Routine) Facility: [facility] - Location: [facility] Ordered By: Emma MUNROE Referrals / Follow Up: Care Physician,No Primary [Primary Care Provider] - Disposition Disposition (needs filled in before D/C Order can be placed): Home, Self Care
--- NOTE | 2023-09-15 17:09 | RAD_ITS ---
EXAM: XR CHEST, 1 VIEW CLINICAL INDICATION: crepitus -- include neck, portable TECHNIQUE: Frontal view of the chest. COMPARISON: No relevant prior studies available. FINDINGS: Stable subcutaneous emphysema in the neck and stable mild pneumomediastinum. Questionable small right apical pneumothorax. No other changes in the short interval. RAD/Chest 1 View (Portable) IMPRESSION: No significant interval change. Electronically Signed: Miguel Lin MD at 18:58 EDT ,
== END 2023-09-15 19:30 | disposition home or self-care (01) ==
LOC: ED 10:39 → MS3 13:30
PROVIDERS: Admitting Provider Surgery; Emergency Provider Student in an Organized Health Care Education/Training Program; Visit Provider Surgery
DX: J98.2 Interstitial emphysema (principal); J93.9 Pneumothorax, unspecified; J45.909 Unspecified asthma, uncomplicated
CPT/HCPCS: 36415; 70360; 70491; 71045; 71260; 74240; 80048; 84484; 85025; 85379; 87631; 87651; 93005; 94640; 94668; 96361; 96374; 99221; 99252; 99285; J7030; Q9967; A4216; G0378; G0463